=== PATIENT | female | born 1950 | race Caucasian/White ===

== ENCOUNTER 2017-07-04 21:38 | Emergency (ER) | payer MEDICARE, OTHER ==
[~2017-07-04] VITALS: Ht 160 cm; Wt 75.0 kg
[2017-07-04] MEDS ORDERED: SING10TA32 PO (21:58)
[2017-07-04] MEDS ORDERED: INSULADS INJ ×2 (21:58)
[2017-07-04] MEDS ORDERED: AVAP75TA7 PO (21:58)
[2017-07-04] MEDS ORDERED: GEMF600T PO (21:58)
[2017-07-04] MEDS ORDERED: METF10004 PO (21:58)
[2017-07-04] MEDS ORDERED: CARD40TA PO (21:58)
[2017-07-04] MEDS ORDERED: NOVOINJ12 SC (21:58)
[2017-07-04] MEDS ORDERED: LIPI20TA PO (21:58)
[2017-07-04] MEDS ORDERED: ALBU17IN2 INH (21:58)
[2017-07-05 00:23] VITALS: BP 153/86
--- NOTE | 2017-07-05 09:12 | REP ---
LEFT FOOT, FOUR VIEWS: HISTORY: Trauma. There is no acute fracture or dislocation. There is narrowing of the intermediate , distal interphalangeal and first metatarsophalangeal joint spaces. IMPRESSION: There is no acute fracture or dislocation. Signed by Rogelio Chawla MD 07/05/2017 09:12 A
== END 2017-07-05 00:33 | disposition home or self-care (01) ==
LOC: M ED 21:38
DX: S93.622A Sprain of tarsometatarsal ligament of left foot, initial encounter (principal); X58.XXXA Exposure to other specified factors, initial encounter; Y92.830 Public park as the place of occurrence of the external cause; Y93.9 Activity, unspecified; Y99.9 Unspecified external cause status; E10.9 Type 1 diabetes mellitus without complications; Z86.79 Personal history of other diseases of the circulatory system; Z90.49 Acquired absence of other specified parts of digestive tract; R56.9 Unspecified convulsions; E78.00 Pure hypercholesterolemia, unspecified; I10 Essential (primary) hypertension; J45.909 Unspecified asthma, uncomplicated; K57.30 Diverticulosis of large intestine without perforation or abscess without bleeding; R39.81 Functional urinary incontinence; Z79.4 Long term (current) use of insulin; Z79.899 Other long term (current) drug therapy; Z88.0 Allergy status to penicillin